=== PATIENT | female | born 1960 | race Asian ===

== ENCOUNTER 2017-06-16 11:53 | Emergency (ER) | payer BC ==
--- NOTE | 2017-06-16 12:27 | UC ---
Skin Complaint HPI - HPI Summary HPI Summary: Patient presents for suture removal, her daughter translates, report stitches have been in for 10 days. Reports well healed laceration with no redness, warmth or drainage. Denies any pain, or difficulty with movement, denies any numbness or tingling. - History of Current Complaint Chief Complaint: UCLaceration Time Seen by Provider: 06/16/17 12:15 Stated Complaint: SUTURE REMOVAL Hx Obtained From: Patient Onset/Duration: Sudden Onset, Lasting Days Onset Severity: Mild Current Severity: Mild Location: Discrete - right wrist. Aggravating Factor(s): Nothing Alleviating Factor(s): Nothing Associated Signs & Symptoms: Positive: Negative - Allergy/Home Medications Allergies/Adverse Reactions: Allergies Allergy/AdvReac Type Severity Reaction Status Date / Time No Known Allergies Allergy Verified 06/16/17 12:04 Home Medications: Home Medications Glimepiride [Amaryl] 0.5 tab PO DAILY 06/16/17 [History Confirmed 06/16/17] Omeprazole [Prilosec] 1 tab PO DAILY 06/16/17 [History Confirmed 06/16/17] Review of Systems Constitutional: Negative Skin: Other - suture removal Eyes: Negative ENT: Negative Respiratory: Negative Cardiovascular: Negative Gastrointestinal: Negative Genitourinary: Negative Motor: Negative Neurovascular: Negative Musculoskeletal: Negative Neurological: Negative Psychological: Negative All Other Systems Reviewed And Are Negative: Yes PMH/Surg Hx/FS Hx/Imm Hx Previously Healthy: Yes Endocrine History: Diabetes GI/ History: Gastroesophageal Reflux - Surgical History Surgical History: None - Family History Known Family History: Positive: Hypertension - Social History Lives: Alone Alcohol Use: None Substance Use Type: None Smoking Status (MU): Never Smoked Tobacco Household Exposure Type: Cigarettes - Immunization History Most Recent Influenza Vaccination: 04/2017 Most Recent Tetanus Shot: unknown Physical Exam Triage Information Reviewed: Yes Appearance: Well-Appearing Vital Signs: Initial Vital Signs Temp 97.3 F 06/16/17 11:57 Pulse 85 06/16/17 11:57 Resp 16 06/16/17 11:57 BP 120/62 06/16/17 11:57 Pulse Ox 100 06/16/17 11:57 Vital Signs Reviewed: Yes Eye Exam: Normal ENT Exam: Normal Neck exam: Normal Neck: Positive: 1 Respiratory Exam: Normal Cardiovascular Exam: Normal Abdominal Exam: Normal Psychological Exam: Normal Skin Exam: Other - sutures removed from left wrist without incidence. dressing reapplied. Course/Dx - Course Course Of Treatment: Patient presents to have the stitches removed from her left wrist, removed without incidence. Well healed laceration. Tolerated procedure well. Dressing reapplied. - Differential Diagnoses - Skin Complaint Differential Diagnoses: Other - suture removal - Diagnoses Provider Diagnoses: suture removal Discharge - Discharge Plan Condition: Stable Disposition: HOME Patient Education Materials: Stitches Removal (ED) Referrals: No Primary Care Phys,NOPCP [Primary Care Provider] -
== END 2017-06-16 12:34 | disposition home or self-care (01) ==
LOC: UCEAST 11:53
DX: S61.512D Laceration without foreign body of left wrist, subsequent encounter (principal); E11.9 Type 2 diabetes mellitus without complications; Z79.84 Long term (current) use of oral hypoglycemic drugs; K21.9 Gastro-esophageal reflux disease without esophagitis; X58.XXXD Exposure to other specified factors, subsequent encounter; Y92.9 Unspecified place or not applicable
CPT/HCPCS: 99212; G0463

== ENCOUNTER 2018-05-22 19:38 | Emergency (ER) | payer BC ==
[2018-05-22 20:21] VITALS: BP 151/95
[2018-05-22] MEDS ORDERED: Ondansetron ODT TAB* 4 MG PO ONE ×2 (21:04→21:05)
--- NOTE | 2018-05-22 21:11 | UC ---
Nausea/Vomiting/Diarrhea HPI - HPI Summary HPI Summary: 57-year-old woman comes in with her family due to nausea and vomiting and then feeling dizzy. This started several hours ago. Patient reports ever she felt nauseous she vomited and after vomiting several times she felt dizzy and she needed to lay down. She had some upper abdominal discomfort with the vomiting she denies any chest pain. Denies any spinning dizziness. No report of any fever. I asked her if she was worried that she was having a heart attack and she denied any concern of any heart problems. 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 Pain Intensity: 0 - Allergies/Home Medications Allergies/Adverse Reactions: Allergies Allergy/AdvReac Type Severity Reaction Status Date / Time No Known Allergies Allergy Verified 05/22/18 20:22 PMH/Surg Hx/FS Hx/Imm Hx Endocrine History: Diabetes - Surgical History Surgical History: None - Family History Known Family History: Positive: Hypertension, Diabetes - Social History Alcohol Use: None Substance Use Type: None Smoking Status (MU): Never Smoked Tobacco Household Exposure Type: Cigarettes - Immunization History Most Recent Influenza Vaccination: 04/2017 Most Recent Tetanus Shot: unknown Review of Systems Constitutional: Negative Skin: Negative Eyes: Negative ENT: Negative Respiratory: Negative Cardiovascular: Negative Gastrointestinal: Vomiting Motor: Negative Neurovascular: Negative Musculoskeletal: Negative Neurological: Negative Psychological: Negative Is Patient Immunocompromised?: No All Other Systems Reviewed And Are Negative: Yes Physical Exam Triage Information Reviewed: Yes Appearance: Well-Appearing, No Pain Distress, Well-Nourished Vital Signs: Initial Vital Signs Temp 98.7 F 05/22/18 20:15 Pulse 87 05/22/18 20:15 Resp 16 05/22/18 20:15 BP 151/95 05/22/18 20:15 Pulse Ox 100 05/22/18 20:15 Vital Signs Reviewed: Yes Eye Exam: Normal Eyes: Positive: Conjunctiva Clear ENT: Positive: Pharynx normal Neck exam: Normal Neck: Positive: Supple Respiratory: Positive: Lungs clear, Normal breath sounds, No respiratory distress Cardiovascular: Positive: RRR Abdomen Description: Positive: Nontender, Soft. Negative: CVA Tenderness (R), CVA Tenderness (L) Bowel Sounds: Positive: Present Musculoskeletal Exam: Normal Musculoskeletal: Positive: Strength Intact, ROM Intact Neurological Exam: Normal Neurological: Positive: Alert, Muscle Tone Normal Psychological Exam: Normal Psychological: Positive: Normal Response To Family, Age Appropriate Behavior Skin Exam: Normal Naus/Vom/Diarrhea Course/Dx - Course Course Of Treatment: Clinic plan is to give the patient Zofran by mouth. Also will send a prescription for more Zofran to be used as needed. I discussed if the patient has any worsening of her symptoms she continues to vomit diffuse abdominal pain she has any chest pain, Go to the emergency department. - Differential Dx/Diagnosis Provider Diagnoses: VOMITING Discharge - Sign-Out/Discharge Documenting (check all that apply): Patient Departure All imaging exams completed and their final reports reviewed: No Studies - Discharge Plan Condition: Stable Disposition: HOME Prescriptions: Ondansetron ODT TAB* [Zofran 4 MG Odt TAB*] 4 mg PO Q6H PRN #10 tab.odt PRN Reason: Nausea Patient Education Materials: Acute Nausea and Vomiting (ED) Referrals: [facility] [place] [facility] REFERRAL [Outside] Additional Instructions: FOLLOW UP WITH YOUR DOCTOR IF NOT COMPLETELY IMPROVED. GO TO THE EMERGENCY DEPARTMENT FOR ANY WORSENING OF YOUR CONDITION; CONTINUED VOMITING, FEVER, YOU FEEL ILL, PAIN, CHEST PAIN OR QUESTIONS OR CONCERNS. - Billing Disposition and Condition Condition: STABLE Disposition: Home
== END 2018-05-22 21:18 | disposition home or self-care (01) ==
LOC: UCEAST 19:38
DX: R11.10 Vomiting, unspecified (principal); E11.9 Type 2 diabetes mellitus without complications
CPT/HCPCS: 99212; A9270-GY; G0463

== ENCOUNTER 2020-06-19 22:15 | Inpatient (IN) ==
[2020-06-19 22:38] LABS: ABS Eosinophils 0.1 10^3/ul (0-0.6); ABS Lymphocytes 1.6 10^3/ul (1.0-4.8); ABS Monocytes 0.8 10^3/ul (0-0.8); ABS Neutrophils 11.3 10^3/ul (1.5-7.7); Eosinophil % 0.8 %; Hematocrit 34 % (35-47); Hemoglobin 10.9 g/dL (12.0-16.0); Lymphocyte % 11.5 %; Mean Corpuscular HGB Conc 32 g/dL (31-36); Mean Corpuscular Hemoglobin 25 pg (27-31); Mean Corpuscular Volume 77 fL (80-97); Mean Platelet Volume 8.2 fL (7.4-10.4); Platelet Count 235 10^3/uL (150-450); Red Blood Count 4.43 10^6 /uL (3.70-4.87); Red Cell Distribution Width 15 % (10-15); White Blood Count 13.8 10^3/uL (3.5-10.8)
[2020-06-19 22:54] LABS: Albumin/Globulin Ratio 1.1 (1-3); BUN/Creatinine Ratio 20.3 (8-20); C Reactive Protein 16.35 mg/L (<8.01); Calcium 9.2 mg/dL (8.6-10.3); EGFR African American 104.7 (>60); EGFR Non-African American 86.5 (>60); Globulin 3.6 g/dL (2-4); Potassium 3.7 mmol/L (3.5-5.0); Total Bilirubin 1.7 mg/dL (0.2-1.0); Total Protein 7.6 g/dL (6.4-8.9)
[2020-06-19] MEDS ORDERED: Ondansetron 4 mg VIAL 2 MG/ML 2 ml VIAL IV ONE (23:08)
[2020-06-19] MEDS ORDERED: NS 0.9% 1000 ml BAG 1,000 ML IV ONE (23:08)
[2020-06-19] MEDS ORDERED: Morphine 4 MG/ML VIAL (1 ml) IV ONE (23:08)
[2020-06-20] MEDS ORDERED: Piperacillin/Tazobac ADVAN 3.375 GM in NS 0.9% 100 ml BAG 100 ML IVPB ONE (00:18)
[2020-06-20] MEDS ORDERED: NS 0.9% 1000 ml BAG 1,000 ML IV SCH (00:45)
[2020-06-20] MEDS ORDERED: Ondansetron 4 mg VIAL 2 MG/ML 2 ml VIAL IV PRN (00:46)
[2020-06-20] MEDS ORDERED: Morphine 2 MG/ML SYRINGE IV PRN (00:58)
[2020-06-20] MEDS ORDERED: Zosyn per Pharmacy NOTE FOLLOW UP SCH (01:00)
[2020-06-20] MEDS ORDERED: Dextrose 50% Syringe 50 ml 25 GM/50 ML SYRINGE IV PUSH PRN (01:06)
[2020-06-20 01:42] LABS: Urine Bacteria Absent (Absent); Urine Red Blood Cell 1+(3-5/hpf) (Absent); Urine Squamous Epithelial Cell Present (Absent); Urine White Blood Cell Trace(0-5/hpf) (Absent)
[2020-06-20 01:51] LABS: Urine Appearance Clear; Urine Blood Negative (Negative); Urine Color Yellow; Urine Ketones Negative (Negative); Urine Protein Negative (Negative); Urine Urobilinogen Negative (Negative)
[2020-06-20 01:52] LABS: Urine Bilirubin Negative (Negative); Urine Glucose 2+(150 mg/dL) (Negative); Urine Nitrite Negative (Negative)
[2020-06-20] MEDS ORDERED: Enoxaparin 40 MG/0.4 ML SYR SUBCUT SCH (02:30)
[2020-06-20] MEDS ORDERED: ZOSYN 3.375 GM Q8H per EXTENDED INFUSION IV SCH (06:00)
[2020-06-20] MEDS: Pantoprazole VIAL 40 MG VIAL IV SCH (08:53)
[2020-06-20] MEDS: Heparin 5000 UNITS/ML 1 mL VIAL SUBCUT SCH ×2 (08:55→21:02)
[2020-06-20 11:16] LABS: Hematocrit 36 % (35-47); Hemoglobin 11.5 g/dL (12.0-16.0); Mean Corpuscular HGB Conc 32 g/dL (31-36); Mean Corpuscular Hemoglobin 25 pg (27-31); Mean Corpuscular Volume 77 fL (80-97); Mean Platelet Volume 7.8 fL (7.4-10.4); Platelet Count 240 10^3/uL (150-450); Red Blood Count 4.64 10^6 /uL (3.70-4.87); Red Cell Distribution Width 15 % (10-15); White Blood Count 14.2 10^3/uL (3.5-10.8)
[2020-06-20 11:22] LABS: INR 1.18 (0.82-1.09)
[2020-06-20 11:56] LABS: ALT 187 U/L (7-52); AST 200 U/L (13-39); Albumin 3.8 g/dL (3.2-5.2); Albumin/Globulin Ratio 1.1 (1-3); Alkaline Phosphatase 287 U/L (34-104); Anion Gap 8 mmol/L (2-11); BUN/Creatinine Ratio 12.7 (8-20); Blood Urea Nitrogen 8 mg/dL (6-24); CO2 Carbon Dioxide 22 mmol/L (22-32); Calcium 8.9 mg/dL (8.6-10.3); Chloride 107 mmol/L (101-111); EGFR African American 116.2 (>60); EGFR Non-African American 96.1 (>60); Globulin 3.5 g/dL (2-4); Glucose 108 mg/dL (70-100); Potassium 3.7 mmol/L (3.5-5.0); Sodium 137 mmol/L (135-145); Total Protein 7.3 g/dL (6.4-8.9)
[2020-06-20 11:59] LABS: % Iron Saturation 8 % (15-55); Iron 31 ug/dL (50-212); Total Iron Binding Capacity 409 mcg/dL (250-450); Transferrin 292 mg/dL (203-362); Unsaturated Iron Binding < 394 ug/dL
[2020-06-20 12:19] LABS: Ferritin 16.2 ng/mL (11-307)
[2020-06-20] MEDS ORDERED: Iodixanol (CONTRAST) 320 MG/ML 100 ML SDV IV ONE (12:45)
[2020-06-20] MEDS: D5LR 1000 ml BAG 1,000 ML IV SCH (18:10)
[2020-06-20] MEDS ORDERED: Insulin GLARGINE 100 un/ml 10 ml VIAL SUBCUT SCH (21:00)
[2020-06-21 05:54] LABS: ABS Eosinophils 0.1 10^3/ul (0-0.6); ABS Lymphocytes 2.2 10^3/ul (1.0-4.8); ABS Monocytes 0.4 10^3/ul (0-0.8); ABS Neutrophils 3.4 10^3/ul (1.5-7.7); Eosinophil % 1.4 %; Hematocrit 32 % (35-47); Hemoglobin 10.1 g/dL (12.0-16.0); Lymphocyte % 35.7 %; Mean Corpuscular HGB Conc 32 g/dL (31-36); Mean Corpuscular Hemoglobin 25 pg (27-31); Mean Corpuscular Volume 77 fL (80-97); Mean Platelet Volume 7.9 fL (7.4-10.4); Nucleated Red Blood Cells % 0.1; Platelet Count 205 10^3/uL (150-450); Red Blood Count 4.11 10^6 /uL (3.70-4.87); Red Cell Distribution Width 16 % (10-15); White Blood Count 6.1 10^3/uL (3.5-10.8)
[2020-06-21 06:12] LABS: Albumin 3.3 g/dL (3.2-5.2); BUN/Creatinine Ratio 11.8 (8-20); Calcium 8.6 mg/dL (8.6-10.3); EGFR African American 148.3 (>60); EGFR Non-African American 122.6 (>60); Globulin 3.2 g/dL (2-4); Potassium 3.4 mmol/L (3.5-5.0); Total Bilirubin 3.2 mg/dL (0.2-1.0); Total Protein 6.5 g/dL (6.4-8.9)
[2020-06-21] MEDS ORDERED: Pneumococcal Vac 23-Polyvalent IM ONE (09:00)
[2020-06-21] MEDS: Pantoprazole VIAL 40 MG VIAL IV SCH (09:09)
[2020-06-21] MEDS: Heparin 5000 UNITS/ML 1 mL VIAL SUBCUT SCH (09:10)
[2020-06-21] MEDS ORDERED: Lidocaine 2% PF 5 ML VIAL ONE (14:00)
[2020-06-21] MEDS ORDERED: Dexamethasone IV 4 MG/ML VIAL 1 ml VIAL ONE (14:00)
[2020-06-21] MEDS ORDERED: Propofol 10 MG/ML 20 ML BTL ONE (14:00)
[2020-06-21] MEDS ORDERED: Ondansetron 4 mg VIAL 2 MG/ML 2 ml VIAL ONE (14:00)
[2020-06-21] MEDS ORDERED: fentaNYL 100 mcg/2 ml 50 MCG/ML VIAL ONE (14:00)
[2020-06-21] MEDS ORDERED: Rocuronium 50 mg VIAL 10 mg/ml 5 ml VIAL (50 mg) ONE (14:00)
[2020-06-21] MEDS ORDERED: Midazolam 5 mg/5 ml VIAL 1 mg/ml 5 ml VIAL (5 mg) ONE (14:01)
[2020-06-21] MEDS ORDERED: Phenylephrine 40 mcg/mL 10mL (400mcg) SYRINGE ONE (15:19)
[2020-06-21] MEDS: Indomethacin 50 mg SUPP (NF) PR ONE ×2 (15:25→16:25)
[2020-06-21] MEDS ORDERED: Ondansetron 4 mg VIAL 2 MG/ML 2 ml VIAL IV PRN (15:39)
[2020-06-21] MEDS ORDERED: Naloxone 0.4 mg VIAL 0.4 mg/ml 1 ml VIAL IV PRN (15:39)
[2020-06-21] MEDS ORDERED: fentaNYL 100 mcg/2 ml 50 MCG/ML VIAL IV PRN (15:39)
[2020-06-21] MEDS ORDERED: Labetalol IV 5 MG/ML 20 ml VIAL IV PUSH ONE (16:44)
[2020-06-21] MEDS ORDERED: Labetalol IV 5 MG/ML 20 ml VIAL ONE (16:46)
[2020-06-21] MEDS: D5LR 1000 ml BAG 1,000 ML IV SCH (18:02)
[2020-06-22] MEDS: Lactated Ringers 1000 ml BAG 1,000 ML IV SCH (06:15)
[2020-06-22 08:57] LABS: ABS Lymphocytes 1.5 10^3/ul (1.0-4.8); ABS Monocytes 0.4 10^3/ul (0-0.8); Hematocrit 32 % (35-47); Hemoglobin 10.3 g/dL (12.0-16.0); Lymphocyte % 21.7 %; Mean Corpuscular HGB Conc 32 g/dL (31-36); Mean Corpuscular Hemoglobin 25 pg (27-31); Mean Corpuscular Volume 76 fL (80-97); Mean Platelet Volume 7.8 fL (7.4-10.4); Platelet Count 248 10^3/uL (150-450); Red Cell Distribution Width 15 % (10-15)
[2020-06-22 09:14] LABS: Albumin 3.5 g/dL (3.2-5.2); BUN/Creatinine Ratio 19.6 (8-20); Calcium 8.8 mg/dL (8.6-10.3); EGFR African American 148.3 (>60); EGFR Non-African American 122.6 (>60); Globulin 3.4 g/dL (2-4); Potassium 3.7 mmol/L (3.5-5.0); Total Protein 6.9 g/dL (6.4-8.9)
[2020-06-22] MEDS: Pantoprazole VIAL 40 MG VIAL IV SCH (10:26)
[2020-06-23] MEDS: Lactated Ringers 1000 ml BAG 1,000 ML IV SCH (02:06)
[2020-06-23] MEDS ORDERED: Buffered Lidocaine 1% SYRIN 1 ml INTRADERM ONE (06:00)
[2020-06-23] MEDS ORDERED: Lactated Ringers 1000 ml BAG 1,000 ML IV SCH (06:00)
[2020-06-23 06:36] LABS: ABS Lymphocytes 3.3 10^3/ul (1.0-4.8); ABS Monocytes 0.4 10^3/ul (0-0.8); ABS Neutrophils 4.2 10^3/ul (1.5-7.7); Eosinophil % 0.2 %; Hematocrit 31 % (35-47); Lymphocyte % 41.5 %; Mean Corpuscular HGB Conc 33 g/dL (31-36); Mean Corpuscular Hemoglobin 25 pg (27-31); Mean Corpuscular Volume 76 fL (80-97); Mean Platelet Volume 8.3 fL (7.4-10.4); Platelet Count 219 10^3/uL (150-450); Red Blood Count 4.03 10^6 /uL (3.70-4.87); Red Cell Distribution Width 16 % (10-15); White Blood Count 7.9 10^3/uL (3.5-10.8)
[2020-06-23 07:06] LABS: Albumin 3.1 g/dL (3.2-5.2); BUN/Creatinine Ratio 13.6 (8-20); Calcium 8.5 mg/dL (8.6-10.3); EGFR African American 125.4 (>60); EGFR Non-African American 103.6 (>60); Indirect Bilirubin 0.5 mg/dL (0.3-1.0); Magnesium 1.8 mg/dL (1.9-2.7); Potassium 3.5 mmol/L (3.5-5.0); Total Bilirubin 0.8 mg/dL (0.2-1.0); Total Protein 6.1 g/dL (6.4-8.9)
[2020-06-23] MEDS ORDERED: Magnesium Sulfate 2 gm BAG 2 GM/50 ML BAG IVPB ONE (07:10)
[2020-06-23] MEDS: Pantoprazole VIAL 40 MG VIAL IV SCH (07:23)
[2020-06-23] MEDS ORDERED: fentaNYL 100 mcg/2 ml 50 MCG/ML VIAL ONE (08:29)
[2020-06-23] MEDS ORDERED: Midazolam 2 mg/2 ml VIAL 1 mg/ml 2 ml VIAL (2 mg) ONE (08:29)
[2020-06-23] MEDS ORDERED: Lidocaine 2% PF 5 ML VIAL ONE (08:30)
[2020-06-23] MEDS ORDERED: ceFAZolin 2 GM PREMIX 2 GM/50 ML BAG ONE (09:21)
[2020-06-23] MEDS ORDERED: Bupivacaine 0.25% SDV 30 ML ONE (09:30)
[2020-06-23] MEDS ORDERED: HYDROmorphone 1 MG/1 ML SYRINGE ONE (10:10)
[2020-06-23] MEDS ORDERED: Naloxone 0.4 mg VIAL 0.4 mg/ml 1 ml VIAL IV PRN (10:46)
[2020-06-23] MEDS ORDERED: DiMENhydriNATE IV 50 mg/ml 1 ml VIAL IV PUSH PRN (10:46)
[2020-06-23] MEDS ORDERED: fentaNYL 100 mcg/2 ml 50 MCG/ML VIAL IV PRN (10:46)
[2020-06-23] MEDS ORDERED: DiMENhydriNATE IV 50 mg/ml 1 ml VIAL ONE (12:02)
[2020-06-23] MEDS ORDERED: Ondansetron 4 mg VIAL 2 MG/ML 2 ml VIAL ONE (13:58)
[2020-06-23 14:28] VITALS: BP 139/82
== END 2020-06-23 13:30 | disposition home or self-care (01) | DRG 263 ==
LOC: EDBD → ED 22:15 → SSU 22:15 → MERGE 06-21 17:44
PROVIDERS: ADMIT Internal Medicine; ATTEND Surgery